=== PATIENT | male | born 1990 | race Caucasian/White ===

== ENCOUNTER → 2017-05-16 | Outpatient (REF) | payer OTHER ==
[2017-05-16 12:40] LABS: SPERM ABNORMAL FORMS WBC'S NOTED
[2017-05-16 12:41] LABS: % NORMAL FORMS < 4 % (>=4); IMMOTILITY 91 %; NON PROGRESSIVE MOTILITY (c) 5 %; PROGRESSIVE MOTILITY (a) 4 % (>=32); SPERM# 187.9 M/Ejac (>=39); TOTAL FUNCTIONAL 0.4 M/Ejac.; TOTAL MOTILITY 9 % (>=40); TOTAL PROGRESSIVE SPERM 7.3 M/Ejac.
== END ==
LOC: M LAB REF 12:32
PROVIDERS: ATTEND Obstetrics & Gynecology
DX: N46.8 Other male infertility (principal)